=== PATIENT | male | born 1975 | race African-American/Black ===

== ENCOUNTER 2022-02-15 10:55 | Emergency (ER) | payer OTHER | END 2022-02-15 12:59 | disposition home or self-care (01) | LOC: CSHERS 10:55 | DX: M79.652 Pain in left thigh (principal); M54.50 Low back pain, unspecified; I10 Essential (primary) hypertension; V63.5XXA Driver of heavy transport vehicle injured in collision with car, pick-up truck or van in traffic accident, initial encounter | CPT/HCPCS: 72131; 72170; 99283 ==